=== PATIENT | female | born 1985 | race Caucasian/White ===

== ENCOUNTER 2017-11-23 08:58 | Emergency (ER) | payer BC ==
[2017-11-23] MEDS ORDERED: Rabies Vaccine (Avian) 2.5 Unit Inj Kit IM ONE (09:48)
[2017-11-23] MEDS ORDERED: Rabies Immune Globulin PF 150 Units/ML 10 ML SDV IM ONE (10:00)
--- NOTE | 2017-11-23 10:11 | EDM.PDOC ---
ED HPI GENERAL MEDICAL PROBLEM - General Chief Complaint: Bite:Animal, Insect Stated Complaint: POSS. BAT BITE Time Seen by Provider: 11/23/17 09:16 Source of Information: Reports: Patient History Limitations: Reports: No Limitations - History of Present Illness INITIAL COMMENTS - FREE TEXT/NARRATIVE: The patient presents with a possible bat bite. She woke up this morning with something on her left leg. She thought it was a bug and knocked it against the wall. It was a bat. She does not think she got bit. She has no other complaints. She never got the rabies vaccine before. Onset: Sudden Duration: Hour(s): Location: Reports: Lower Extremity, Left (back of her leg) Severity: Mild Improves with: Reports: None Worsens with: Reports: None Associated Symptoms: Reports: No Other Symptoms - Related Data Allergies Allergy/AdvReac Type Severity Reaction Status Date / Time nitrofurantoin Allergy Diarrhea Verified 11/23/17 09:14 [From Macrobid] Penicillins Allergy Hives Verified 11/23/17 09:14 Home Meds: Home Meds . 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: Other Neuro History: vertigo Social & Family History - Tobacco Use Smoking Status *Q: Current Every Day Smoker Years of Tobacco use: 5 Packs/Tins Daily: 0.5 - Caffeine Use Caffeine Use: Reports: Soda, Tea - Recreational Drug Use Recreational Drug Use: No ED ROS GENERAL - Review of Systems Review Of Systems: See Below Constitutional: Reports: No Symptoms HEENT: Reports: No Symptoms Respiratory: Reports: No Symptoms Cardiovascular: Reports: No Symptoms Endocrine: Reports: No Symptoms GI/Abdominal: Reports: No Symptoms : Reports: No Symptoms Musculoskeletal: Reports: Other (No puncture wounds or scratches were seen) ED EXAM, ANIMAL BITE - Physical Exam Exam: See Below Exam Limited By: No Limitations General Appearance: Alert, No Apparent Distress Ears: Normal External Exam Nose: Normal Inspection Head: Atraumatic, Normocephalic Neck: Normal Inspection Respiratory/Chest: No Respiratory Distress Extremities: Other (No puncture wounds or scratches) Course - Vital Signs Last Recorded V/S: Last Vital Signs Temp 97.6 F 11/23/17 09:09 Pulse 89 11/23/17 09:09 Resp 14 11/23/17 09:09 BP 114/67 07/17/18 09:09 Pulse Ox 100 11/23/17 09:09 - Orders/Labs/Meds Orders: Active Orders 24 hr Category Date Time Status Vaccines to be Administered [RC] PER UNIT ROUTINE Care 11/23/17 09:53 Active Meds: Medications Discontinued Medications Generic Name Dose Route Start Last Admin Trade Name Alex PRN Reason Stop Dose Admin Rabies Immune Globulin 1,500 unit 11/23/17 10:00 Hyperrab S/D IM 11/23/17 10:01 ONETIME ONE Rabies Immune Globulin 100 unit 11/23/17 10:00 Hyperrab S-D Vial IM 11/23/17 10:01 ONETIME ONE Rabies Vaccine 2.5 unit 11/23/17 09:48 Rabavert IM 11/23/17 09:49 .ONCE ONE - Re-Assessments/Exams Free Text/Narrative Re-Assessment/Exam: 11/23/17 10:56 I called the [facility] department and they recommended she get the IGG and vaccine. The patient does have insurance but she does have a high deductible of $6650. This is not something she can do now. I had our staff look to see cost and it was over her deductible. They also checked to see if she would be eligible for assistance and it appears she does but she has to fill out some paperwork first. She wants to do that first and then get the injections. She will return with it. Departure - Departure Time of Disposition: 11:00 Disposition: Home, Self-Care 01 Condition: Good Clinical Impression: Exposure to bat without known bite - Discharge Information *PRESCRIPTION DRUG MONITORING PROGRAM REVIEWED*: Not Applicable *COPY OF PRESCRIPTION DRUG MONITORING REPORT IN PATIENT DULCE: Not Applicable Referrals: Gini Pickard MD [Primary Care Provider] - Forms: ED Department Discharge Additional Instructions: Please fill out the paperwork and return for the shots. Please get the shots. Rabies is 100% fatal. The [facility] department and myself recommend the shots. - My Orders Last 24 Hours: My Active Orders 11/23/17 09:53 Vaccines to be Administered [RC] PER UNIT ROUTINE - Assessment/Plan Last 24 Hours: My Active Orders 11/23/17 09:53 Vaccines to be Administered [RC] PER UNIT ROUTINE
== END 2017-11-23 11:15 | disposition home or self-care (01) ==
LOC: JD.ED 08:58
DX: Z20.3 Contact with and (suspected) exposure to rabies (principal); Z23 Encounter for immunization; F17.210 Nicotine dependence, cigarettes, uncomplicated; Z88.8 Allergy status to other drugs, medicaments and biological substances; Z88.0 Allergy status to penicillin
CPT/HCPCS: 99283; 99284